=== PATIENT | male | born 1975 | race Caucasian/White ===

== ENCOUNTER 2016-09-17 19:59 | Observation (INO) | payer MEDICAID ==
[~2016-09-17] VITALS: Ht 177.8 cm; Wt 125.3 kg
[~2016-09-17 19:59] MED LIST: ACIDOPHILUS LA1 EACH PO; AMLODIPINE BES10 MG PO; ATORVASTATIN CA20 M1 PO; CLINDAMYCIN HC300 MG PO; ETODOLAC400 MG PO; FLEXERIL10 MG PO; GLIPIZIDE XL5 M1 PO; LEVOTHYROXINE0.05 M2 PO; LISINOPRIL 20MG20 MG PO; LOPRESSOR 25MG.25 MG PO; METFORMIN1000 MG PO
[2016-09-17 20:07] VITALS: BP 194/117
--- NOTE | 2016-09-17 20:33 | Emergency Room Report ---
History of Present Illness Time Seen by 2030 Presenting Problem in Triage Pt arrived:Walked Presenting Problem:C/O BLOOD SUGAR DROPPED AT 1300. STARTED HAVING CHEST PAIN AND SHORTNESS OF BREATH. STATES GLUC 41. 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 N Clinical Suspician of Infection? N Mental Status: 1 - Regular (Normal Baseline) Sepsis Risk:Low Sepsis Risk Have you (or family members/close friends) recently traveled outside the [place]? N If Yes, where/when: Have you had exposure to infectious disease within the past month? N TB? Other? Specify: Source patient, RN notes reviewed, family, old records Exam Limitations no limitations Comment wm who has acute episode of chest tightness like vice like pain with hx of abn gxt in pst but no cath - he uses tob and has niddm and pos fh Cardiac Chest Pain Chest pain indicative of cardiac Yes Timing/Duration 1-3 hours, gone now Severity/Quality moderate, tightness Location central Chest Pain Radiation arm(s) Activities at Onset light activity Nitro Today/Relief no nitro taken today Aspirin Treatment Today 81 mg x 4, provided by ED Beta michelle treatment today Beta michelle taken, provided by ED, mild relief Cardiac risk factors + cardiovascular disease, Diabetes, + family history, HTN controlled, obesity Prior Workup/Intervention stress test Timing/Duration this afternoon Severity moderate ALLERGIES Coded Allergies: Penicillins (06/28/15) Home Medications Reported Medications Levothyroxine Sodium 0.05 MG PO DAILY #30 Amlodipine Besylate (Amlodipine Besylate) 10 MG PO DAILY #30 Metoprolol Tartrate (Lopressor) 100 MG PO BID #60 TAB Atorvastatin Calcium 20 MG PO DAILY #30 LISINOPRIL (Lisinopril) 20 MG PO DAILY Glipizide XL 5 MG PO DAILY #30 History Medical History General CAD? No Angina: No CT: No Hypertension? Yes Hyperlipidemia? No CHF? No DVT? No PE? No COPD? No Asthma? No Anemia? No GERD? No Gastric ulcers? No GI Bleed? No Hernia? No Thyroid Problems? Yes Hypothyroidism? Yes CVA? No Seizures? No Diabetes? Yes Insulin Dependent: No Insulin Pump: No Home FSBS? Yes Renal Insuffiency? No End Stage Renal Disease? No UTI? No Stones? No BPH? No GB Disease: No Nephritic Syndrome? No Asplenia? No Hepatitis? No Sickle Cell Disease? No Arthritis? No Migraines? No Cataracts? No Glaucoma? No MRSA? No HIV? No TB? No Anxiety? No Depression? No Cancer? No Immunization Hx DT/Tetanus Unknown Surgical Hx Previous Surgery?Y RT HIP PINS TEETH EXTRACTION Social History Smoking Hx Smoker: Current Every Day Smoker Tobacco: Yes Type Cigarettes Packs/day < 1 Pack Alcohol Alcohol: No Drugs none Review of Systems All Other Systems Reviewed and Negative Constitutional denies fever Eyes denies drainage ENT denies: ear pain, epistaxis, throat pain. Respiratory denies cough, denies shortness of breath, denies wheezing Cardiovascular see HPI, chest pain, denies palpitations, denies syncope Gastrointestinal see HPI, denies abdominal pain, nausea, denies vomiting Genitourinary denies: dysuria, frequency, hesitancy, hematuria. Musculoskeletal denies back pain, denies joint pain, denies joint swelling, denies neck pain Skin denies rash Psychiatric/Neurological denies headache, denies seizure Physical Exam Vital Signs Vital Signs Date Time Temp Pulse Resp B/P Pulse O2 O2 Flow FiO2 Ox Delivery Rate 09/179 86 20 153/95 95 09/17 2006 98.7 88 18 194/117 98 - WBC >12,000 or <4,000 or 10% bands? 2 or more SIRS Criteria Met? B/P:153/95 MAP:142 Creatinine >2.0? UA output<0.5ml/kg/hr for 2 hrs? Platelet count >100,000? Lactate >2.0mmol/1? INR >1.2 or PTT > than 60 sec? Evidence of Organ Dysfunction? Provider documented clinical suspician of infection? N Sepsis Criteria Count: 0 Sepsis Risk: Low Sepsis Risk General Appearance no apparent distress Eye Exam - bilateral eye PERRL, bilateral eye EOMI Ear, Nose, Throat normal ENT inspection Neck supple Respiratory Status No: respiratory distress. Lung Sounds bilateral: lungs clear. 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 No Results/Orders Laboratory Tests 09/17/162043: WBC 10.9 H, RBC 5.18, Hgb 15.6, Hct 46.6, MCV 90.0, RDW 13.3, Plt Count 296, MPV 5.8 L, Gran % 65.8, Gran # 7.2, Lymphocytes % 24.8, Monocytes % 4.8, Eosinophils % 3.9, Basophils % 0.6, Lymphocytes # 2.7, Monocytes # 0.5, Eosinophils # 0.4, Basophils # 0.1, PUBS MCHC 33.5, MCH 30.2 09/17/162009: Sodium 142, Potassium 3.4 L, Chloride 107, Carbon Dioxide 26, BUN 10, Creatinine 1.1, Estimated Creat Clear 157, Estimated GFR (MDRD) 74, Glucose 168 H, Calcium 8.9, Total Bilirubin 0.2, AST 19, ALT 57, Alkaline Phosphatase 137 H , Creatine Kinase 171, CK-MB (CK-2) Rel Index 0.6, CK and CKMB Interp 1.0, Troponin I < 0.02, Total Protein 7.3, Albumin 3.7, Globulin 3.6 H, Albumin/ Globulin Ratio 1.0 L Current Medication Orders Sig/Alistair Start time Last Medication Dose Route Stop Time Status Admin Nitroglycerin 1 IN ONCE ONE 09/17 2044 DC 09/17 TP 09/17 Aspirin 324 MG ONCE ONE 09/17 2029 DC 09/17 PO 09/17 Sodium Chloride 10 ML PRN PRN 09/17 2029 AC IV 09/19 2023 Aspirin 0 .STK-MED ONE 09/17 2025 DC .ROUTE Orders Procedure Date/time Status Decision to admit 09/17 2137 Active CHEST-PORTABLE 09/17 2032 Active 12 LEAD EKG-ROHINI (INITIAL) 09/17 2024 Active ELECTROCARDIOGRAM REQUEST 09/17 2024 Active IV SALINE LOCK 09/17 2024 Active STAVE BOLT EQUALIZER 09/17 2024 Active CBC WITH AUTO DIFF 09/17 2024 Complete CARDIAC ENZYMES 09/17 2024 Complete CHEM 12 PROFILE 09/17 2024 Complete CM/EKG CM/quarrying specialist Rhythm Normal Sinus Rhythm EKG non-spec. ST/Twave chgs XRAY/CT/US XRAY/CT/US XRAY chest XR interpretation by reviewed by me Xray Results normal/NAD Departure Departure Time of Disposition 2130 Disposition Still a Patient Clinical Impression Primary Impression: Chest pain Qualifiers: Chest pain type: precordial pain Qualified Code: R07.2 - Precordial pain Secondary Impressions: HTN (hypertension) Qualifiers: Hypertension type: essential hypertension Qualified Code: I10 - Essential (primary) hypertension NIDDY (non-insulin dependent diabetes mellitus in young) Tobacco use Condition STABLE Referrals HODA CORDERO (Family) discussed with dr matos and dr adair ED Critical Care Critical Care No at 2138
--- NOTE | 2016-09-17 20:33 | Emergency Room Report ---
History of Present Illness Time Seen by 2030 Presenting Problem in Triage Pt arrived:Walked Presenting Problem:C/O BLOOD SUGAR DROPPED AT 1300. STARTED HAVING CHEST PAIN AND SHORTNESS OF BREATH. STATES GLUC 41. 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 N Clinical Suspician of Infection? N Mental Status: 1 - Regular (Normal Baseline) Sepsis Risk:Low Sepsis Risk Have you (or family members/close friends) recently traveled outside the [place]? N If Yes, where/when: Have you had exposure to infectious disease within the past month? N TB? Other? Specify: Source patient, RN notes reviewed, family, old records Exam Limitations no limitations Comment wm who has acute episode of chest tightness like vice like pain with hx of abn gxt in pst but no cath - he uses tob and has niddm and pos fh Cardiac Chest Pain Chest pain indicative of cardiac Yes Timing/Duration 1-3 hours, gone now Severity/Quality moderate, tightness Location central Chest Pain Radiation arm(s) Activities at Onset light activity Nitro Today/Relief no nitro taken today Aspirin Treatment Today 81 mg x 4, provided by ED Beta michelle treatment today Beta michelle taken, provided by ED, mild relief Cardiac risk factors + cardiovascular disease, Diabetes, + family history, HTN controlled, obesity Prior Workup/Intervention stress test Timing/Duration this afternoon Severity moderate ALLERGIES Coded Allergies: Penicillins (06/28/15) Home Medications Reported Medications Levothyroxine Sodium 0.05 MG PO DAILY #30 Amlodipine Besylate (Amlodipine Besylate) 10 MG PO DAILY #30 Metoprolol Tartrate (Lopressor) 100 MG PO BID #60 TAB Atorvastatin Calcium 20 MG PO DAILY #30 LISINOPRIL (Lisinopril) 20 MG PO DAILY Glipizide XL 5 MG PO DAILY #30 History Medical History General CAD? No Angina: No [place]: No Hypertension? Yes Hyperlipidemia? No CHF? No DVT? No PE? No COPD? No Asthma? No Anemia? No GERD? No Gastric ulcers? No GI Bleed? No Hernia? No Thyroid Problems? Yes Hypothyroidism? Yes CVA? No Seizures? No Diabetes? Yes Insulin Dependent: No Insulin Pump: No Home FSBS? Yes Renal Insuffiency? No End Stage Renal Disease? No UTI? No Stones? No BPH? No GB Disease: No Nephritic Syndrome? No Asplenia? No Hepatitis? No Sickle Cell Disease? No Arthritis? No Migraines? No Cataracts? No Glaucoma? No MRSA? No HIV? No TB? No Anxiety? No Depression? No Cancer? No Immunization Hx DT/Tetanus Unknown Surgical Hx Previous Surgery?Y RT HIP PINS TEETH EXTRACTION Social History Smoking Hx Smoker: Current Every Day Smoker Tobacco: Yes Type Cigarettes Packs/day < 1 Pack Alcohol Alcohol: No Drugs none Review of Systems All Other Systems Reviewed and Negative Constitutional denies fever Eyes denies drainage ENT denies: ear pain, epistaxis, throat pain. Respiratory denies cough, denies shortness of breath, denies wheezing Cardiovascular see HPI, chest pain, denies palpitations, denies syncope Gastrointestinal see HPI, denies abdominal pain, nausea, denies vomiting Genitourinary denies: dysuria, frequency, hesitancy, hematuria. Musculoskeletal denies back pain, denies joint pain, denies joint swelling, denies neck pain Skin denies rash Psychiatric/Neurological denies headache, denies seizure Physical Exam Vital Signs Vital Signs Date Time Temp Pulse Resp B/P Pulse O2 O2 Flow FiO2 Ox Delivery Rate 09/179 86 20 153/95 95 09/17 2006 98.7 88 18 194/117 98 - WBC >12,000 or <4,000 or 10% bands? 2 or more SIRS Criteria Met? B/P:153/95 MAP:142 Creatinine >2.0? UA output<0.5ml/kg/hr for 2 hrs? Platelet count >100,000? Lactate >2.0mmol/1? INR >1.2 or PTT > than 60 sec? Evidence of Organ Dysfunction? Provider documented clinical suspician of infection? N Sepsis Criteria Count: 0 Sepsis Risk: Low Sepsis Risk General Appearance no apparent distress Eye Exam - bilateral eye PERRL, bilateral eye EOMI Ear, Nose, Throat normal ENT inspection Neck supple Respiratory Status No: respiratory distress. Lung Sounds bilateral: lungs clear. Cardiovascular regular rate/rhythm, no gallop, no JVD, no murmur, no rub Peripheral Pulses Pulses normal Yes Gastrointestinal soft Extremities normal inspection Strength 4 Upper Ext (L), 4 Upper Ext (R), 4 Lower Ext (L), 4 Lower Ext (R) Neurologic alert, research and insights executive II-XII nml as tested, no motor/sensory deficits Reflexes Reflexes normal Yes Mental status normal mood/affect Skin intact Medical Decision Making LABS/Meds/Orders Pt receiving controlled substance in ED? No Results/Orders Laboratory Tests 09/17/162043: WBC 10.9 H, RBC 5.18, Hgb 15.6, Hct 46.6, MCV 90.0, RDW 13.3, Plt Count 296, MPV 5.8 L, Gran % 65.8, Gran # 7.2, Lymphocytes % 24.8, Monocytes % 4.8, Eosinophils % 3.9, Basophils % 0.6, Lymphocytes # 2.7, Monocytes # 0.5, Eosinophils # 0.4, Basophils # 0.1, PUBS MCHC 33.5, MCH 30.2 09/17/162009: Sodium 142, Potassium 3.4 L, Chloride 107, Carbon Dioxide 26, BUN 10, Creatinine 1.1, Estimated Creat Clear 157, Estimated GFR (MDRD) 74, Glucose 168 H, Calcium 8.9, Total Bilirubin 0.2, AST 19, ALT 57, Alkaline Phosphatase 137 H , Creatine Kinase 171, CK-MB (CK-2) Rel Index 0.6, CK and CKMB Interp 1.0, Troponin I < 0.02, Total Protein 7.3, Albumin 3.7, Globulin 3.6 H, Albumin/ Globulin Ratio 1.0 L Current Medication Orders Sig/Alistair Start time Last Medication Dose Route Stop Time Status Admin Nitroglycerin 1 IN ONCE ONE 09/17 2044 DC 09/17 TP 09/17 Aspirin 324 MG ONCE ONE 09/17 2029 DC 09/17 PO 09/17 Sodium Chloride 10 ML PRN PRN 09/17 2029 AC IV 09/19 2023 Aspirin 0 .STK-MED ONE 09/17 2025 DC .ROUTE Orders Procedure Date/time Status Decision to admit 09/17 2137 Active CHEST-PORTABLE 09/17 2032 Active 12 LEAD EKG-ROHINI (INITIAL) 09/17 2024 Active ELECTROCARDIOGRAM REQUEST 09/17 2024 Active IV SALINE LOCK 09/17 2024 Active PRICING COORDINATOR 09/17 2024 Active CBC WITH AUTO DIFF 09/17 2024 Complete CARDIAC ENZYMES 09/17 2024 Complete CHEM 12 PROFILE 09/17 2024 Complete CM/EKG CM/ion exchange operator Rhythm Normal Sinus Rhythm EKG non-spec. ST/Twave chgs XRAY/CT/US XRAY/CT/US XRAY chest XR interpretation by reviewed by me Xray Results normal/NAD Departure Departure Time of Disposition 2130 Disposition Still a Patient Clinical Impression Primary Impression: Chest pain Qualifiers: Chest pain type: precordial pain Qualified Code: R07.2 - Precordial pain Secondary Impressions: HTN (hypertension) Qualifiers: Hypertension type: essential hypertension Qualified Code: I10 - Essential (primary) hypertension NIDDY (non-insulin dependent diabetes mellitus in young) Tobacco use Condition STABLE Referrals HODA CORDERO (Family) discussed with dr matos and dr adair ED Critical Care Critical Care No at 2138
--- OUTSIDE RECORDS SUMMARY | 2016-09-17 20:49 | External Medical Summary Rpt ---
Author Author , Organization [employer] Address Unknown Phone Unavailable Purpose Continuity of Care Document - through 2016
--- OUTSIDE RECORDS SUMMARY | 2016-09-17 20:50 | External Medical Summary Rpt ---
Author Author [employer] Organization [employer] Address Unknown Phone Unavailable Purpose Continuity of Care Document - through 2016
--- OUTSIDE RECORDS SUMMARY | 2016-09-17 20:50 | External Medical Summary Rpt ---
Author Author JENIFER Moreno, JENIFER Moreno Organization [employer] Address Unknown Phone Unavailable
[2016-09-17 20:52] LABS: HEMOGLOBIN 15.6 g/dL (14.1-18.0); LYMPH # 2.7 K/mm3 (0.7-4.5); LYMPH % 24.8 % (10-50)
[2016-09-17 20:55] LABS: BUN 10 mg/dL (7-18)
[2016-09-17 20:56] LABS: GFR (ESTIMATED) 74 ML/MIN (>60)
--- OUTSIDE RECORDS SUMMARY | 2016-09-17 21:51 | External Medical Summary Rpt ---
Author Author JENIFER Moreno, [employer] Organization [employer] Address Unknown Phone Unavailable
[2016-09-17 22:35] VITALS: BP 137/75
[2016-09-17 22:37] VITALS: BP 137/75
[2016-09-17] MEDS ORDERED: METFORMIN500 MG PO (22:56)
--- NOTE | 2016-09-17 22:56 | RADIOLOGY REPORT PS360 ---
CHEST-PORTABLE HISTORY: chest pain ORDERING PHYSICIAN: Dharmesh Reyes MD PATIENT AGE: 41 years COMPARISON: None available FINDINGS: The cardiomediastinal silhouette and pulmonary vascularity are within normal limits. The lungs are clear without infiltrates, suspicious nodules, or pleural effusions. No acute bony abnormalities. IMPRESSION: Negative chest, no acute finding
[2016-09-18] VITALS (13 sets, daily range): BP systolic 116–162; BP diastolic 72–104
[2016-09-18 05:06] LABS: HEMOGLOBIN 14.7 g/dL (14.1-18.0); LYMPH # 2.8 K/mm3 (0.7-4.5); LYMPH % 31.2 % (10-50)
--- NOTE | 2016-09-18 07:12 | PHARMACY CLINIC NOTE ---
Patient Demographics Patient Demographics Admission date: 09/17/16 Date: 09/18/16 Time: 0712 Allergies Coded Allergies: Penicillins (06/28/15) HEIGHT- FT: 5 IN: 10.00 K.307 VTE General Information Labs: Laboratory Tests 09/18 09/17 0415 2044 Hematology Hgb (14.1 - 18.0 g/dL) 14.7 15.6 Hct (42.0 - 52.0 %) 44.6 46.6 Plt Count (142 - 424 K/mm3) 261 296 Disclaimer The following section includes nursing documentation that has been pulled in for pharmacy review. Patient's VTE score: 2 Patient's VTE Risk: VERY LOW RISK Clinical trial participant? No VTE prophylaxis [id number] VTE prophylaxis ordered? Yes Type of prophylaxis/treatment: VINH at 0712
--- NOTE | 2016-09-18 08:08 | CONSULT NOTE ---
See Addendum Standard Demographics Patient Demo Date of Consultation: 09/18/16 Referring Provider: Ginger Cole MD Reason for Consultation: unstable angina pectoris PRIMARY DIAGNOSIS: CHEST PAIN Problem list Problem list: 1. Diabetes mellitus, treated for at least 3 years. 2. Hypertension 3. Hyperlipidemia 4. Tobacco use 5. Strong family history of coronary artery disease in both mother and father ( mother in her early 60s from an myocardial infarction, father with diabetes and congestive heart failure). History of present illness: History of present illness: 41-year-old white male with history of diabetes, hypertension and hyperlipidemia presented to the emergency department yesterday for onset of severe anterior chest discomfort/tightness with associated shortness of breath and diaphoresis. Patient relates blood sugar about that time in the low 40 range which improved into the 60s after taking food and soda. Chest discomfort continued which prompted visit to the emergency department. Patient reportedly has been told he has coronary artery disease in the past although he denies cardiac catheterization. Previous stress test in the last couple years reportedly without need for further intervention. Patient has had some exertional chest tightness and shortness of breath over the last couple weeks while on his blood pressure medications, including metoprolol and amlodipine along with aspirin and atorvastatin. Patient ran out of his medications partially 3 or 4 days ago with worsening of his symptoms. Initial troponins were normal, but patient was admitted for evaluation and observation. Electrocardiogram is sinus rhythm with poor R wave progression anteriorly without acute ST segment elevation. Troponins have returned normal. Cardiology consulted for evaluation and recommendations. Past Medical History: General: Hypertension Yes CVA No Seizures No TB No COPD No Asthma No Diabetes Yes Insulin Dependent No Insulin Pump No Angina No [place] No Hyperlipidemia No Urinary No Cancer No Rheumatic H.D. No Ulcers No MRSA No GB Disease No Other HEART MUMUR Past Surgical HX: Previous Surgery?Y RT HIP PINS TEETH EXTRACTION Allergies Coded Allergies: Penicillins (06/28/15) Home medications: Reported Medications Metformin HCL (Metformin) 500 MG PO QID Levothyroxine Sodium 0.05 MG PO DAILY #30 Amlodipine Besylate (Amlodipine Besylate) 10 MG PO DAILY #30 Metoprolol Tartrate (Lopressor) 100 MG PO BID #60 TAB Atorvastatin Calcium 20 MG PO DAILY #30 LISINOPRIL (Lisinopril) 20 MG PO DAILY Glipizide XL 5 MG PO DAILY #30 Current Medications: Current Medications Amlodipine Besylate 10 MG DAILY PO Atorvastatin Calcium 20 MG DAILY PO Levothyroxine Sodium 0.05 MG DAILY PO Lisinopril 20 MG DAILY PO Metoprolol Tartrate 100 MG BID PO Fentanyl Citrate 25 MCG PRN PRN IV (UNV) Fentanyl Citrate 50 MCG PRN PRN IV (UNV) Flumazenil 0.2 MG PRN PRN IV (UNV) Heparin Sodium (Beef Lung) 5,000 UNITS PRN PRN IV (UNV) Heparin Sodium/Sodium Chloride 3,000 UNITS PRN PRN IV (UNV) Lidocaine HCl 20 ML ONCE ONE IJ (UNV) Midazolam HCl 1 MG PRN PRN IV (UNV) Midazolam HCl 1 MG PRN PRN IV (UNV) Naloxone HCl 0.4 MG [id number] PRN IV (UNV) Nitroglycerin 800 MCG PRN PRN IV (UNV) Verapamil HCl 5 MG PRN PRN IV (UNV) Diagnostic Test (Pha) 1 EACH W/MEALS&HS FS Insulin Human [rDNA origin] SEE ADMIN CRITERIA FOR LOW INTENSITY SS W/MEALS&HS SC Nitroglycerin 1 IN Q8 TP Acetaminophen 650 MG Q4HP PRN PO Hydromorphone HCl 1 MG Q4HP PRN IV Nicotine 21 MG DAILYP PRN TD Ondansetron HCl 4 MG Q6HP PRN IV Sodium Chloride 1,000 ML .Q20H IV Enoxaparin Sodium 125 MG ONCE ONE SC (DC) Enoxaparin Sodium 0 .STK-MED ONE SC (DC) Metoprolol Tartrate 50 MG ONCE ONE PO (DC) Metoprolol Tartrate 0 .STK-MED ONE .ROUTE (DC) Ticagrelor 180 MG ONCE ONE PO (DC) Ticagrelor 0 .STK-MED ONE PO (DC) Nitroglycerin 1 IN ONCE ONE TP (DC) Aspirin 324 MG ONCE ONE PO (DC) Sodium Chloride 10 ML PRN PRN IV Aspirin 0 .STK-MED ONE .ROUTE (DC) Immunization HX DT/Tetanus 5-10 Years Pneumonia Never Had TB Test in last year Yes Result Negative Family history Family HX Family Hx Insignificant No Diabetes Yes CAD Yes Hypertension Yes Hyperlipidemia Yes Cancer No TB No Social Hx: Smoking HX Tobacco Yes Type Cigarettes Packs/day < 1 PACK Alcohol Alcohol: No Hx of Drug Use Drug Use? No Patient's support system is good Review of systems: Constitutional see HPI. Respiratory SOB with excertion. Cardiovascular see HPI, chest pain Gastrointestinal/Abdominal No no symptoms reported Genitourinary No: no symptoms reported. Musculoskeletal back pain. Neurological Yes: tingling. Exam: Admission Vital Signs: 1ST Vital Signs Result Date Time Pulse Ox 98 09/17 2006 B/P 194/117 09/17 2006 Temp 98.7 09/17 2006 Pulse 88 09/17 2006 Resp 09/17 O2 Delivery ROOM AIR 09/17 2234 Last Vital Signs: Vital Signs Result Date Time Pulse Ox 95 09/18 425 B/P 128/93 09/18 425 O2 Delivery ROOM AIR 09/18 425 Temp 98.7 09/18 425 Pulse 69 09/18 425 Resp 09/18 Exam General appearance: alert, awake, no acute distress Neck: no carotid bruit, no JVD Cardiovascular: regular rate & rhythm, murmur Respiratory: clear to auscultation, good air movement ABD: soft, no tenderness Extremities: moves all, edema Neuro: alert, intact, oriented, speech clear Laboratory data: Laboratory Tests 09/18/16414: Creatine Kinase 126, CK-MB (CK-2) Rel Index 0.6, CK and CKMB Interp 0.7, Troponin I < 0.02 09/18/16414: Sodium 141, Potassium 3.3 L, Chloride 109 H, Carbon Dioxide 25, BUN 10, Creatinine 1.0, Estimated Creat Clear 172, Estimated GFR (MDRD) 82, Glucose 148 H, Calcium 8.6, WBC 8.9, RBC 4.95, Hgb 14.7, Hct 44.6, MCV 90.1, RDW 13.3, Plt Count 261, MPV 5.8 L, Gran % 57.6, Gran # 5.1, Lymphocytes % 31.2, Monocytes % 5.8, Eosinophils % 4.5, Basophils % 0.8, Lymphocytes # 2.8, Monocytes # 0.5, Eosinophils # 0.4, Basophils # 0.1, PUBS MCHC 32.9, MCH 29.6 09/18/16 0105: Creatine Kinase 137, CK-MB (CK-2) Rel Index 0.5, CK and CKMB Interp 0.7, Troponin I < 0.02 09/17/162043: Triglycerides 297 H, Cholesterol 144, LDL Cholesterol 65.6, VLDL Cholesterol 59.4 H, HDL Cholesterol 19.0 L, TSH 4.69 H, Thyroxine (T4) 7.1, WBC 10.9 H, RBC 5.18, Hgb 15.6, Hct 46.6, MCV 90.0, RDW 13.3, Plt Count 296, MPV 5.8 L, Gran % 65.8, Gran # 7.2, Lymphocytes % 24.8, Monocytes % 4.8, Eosinophils % 3.9, Basophils % 0.6, Lymphocytes # 2.7, Monocytes # 0.5, Eosinophils # 0.4, Basophils # 0.1, PUBS MCHC 33.5, MCH 30.2 09/17/162009: Sodium 142, Potassium 3.4 L, Chloride 107, Carbon Dioxide 26, BUN 10, Creatinine 1.1, Estimated Creat Clear 157, Estimated GFR (MDRD) 74, Glucose 168 H, Calcium 8.9, Total Bilirubin 0.2, AST 19, ALT 57, Alkaline Phosphatase 137 H , Creatine Kinase 171, CK-MB (CK-2) Rel Index 0.6, CK and CKMB Interp 1.0, Troponin I < 0.02, Total Protein 7.3, Albumin 3.7, Globulin 3.6 H, Albumin/ Globulin Ratio 1.0 L Plan: Assessment: 1. Unstable angina pectoris in a known diabetic with multiple cardiac risk factors. 2. Hypokalemia, replacement in progress. 3. Hypertension on admission due to medication noncompliance, currently controlled. 4. Hyperlipidemia, on statin therapy, LDL 65, HDL 19. 5. Tobacco use of at least one pack per day. 6. Strong family history of coronary disease Recommendations: 1. Proceed with LEFT heart catheterization today. 2. Obtain echocardiogram. 3. Further recommendations to follow. 4. Home medications including amlodipine, metoprolol lisinopril and aspirin have been restarted. at 0809
[2016-09-18] MEDS ORDERED: VICTOZA6 MG/ML SC (08:45)
[2016-09-18] MEDS ORDERED: ASPIRIN 325MG325 MG PO (08:46)
--- NOTE | 2016-09-18 08:56 | HISTORY AND PHYSICAL REPORT ---
See Addendum History and Physical (FCA) Date of admission: 09/17/16 Chief complaint: chest pain History: History of Present Illness: Mr Omer is a 41-year-old white male with history of diabetes, hypertension and hyperlipidemia who presented to the emergency department yesterday for onset of severe anterior chest discomfort/tightness with associated shortness of breath and diaphoresis. Patient relates blood sugar about that time in the low 40 range which improved into the 60s after taking food and soda. Chest discomfort continued which prompted visit to the emergency department. Patient reportedly has been told he has coronary artery disease in the past although he denies cardiac catheterization. Previous stress test in the last couple years reportedly without need for further intervention. Patient has had some exertional chest tightness and shortness of breath over the last couple weeks while on his blood pressure medications, including metoprolol and amlodipine along with aspirin and atorvastatin. Patient ran out of his medications partially 3 or 4 days ago with worsening of his symptoms. Initial troponins were normal, but patient was admitted for evaluation and observation. Electrocardiogram is sinus rhythm with poor R wave progression anteriorly without acute ST segment elevation. Troponins have returned normal. Cardiology consulted for evaluation and recommendations. This AM he continues to have some chest discomfort although it is much improved. He slept at some intervals. Past Medical History: Medical History: CAD? Yes Angina: No ID: No Hypertension? Yes Hyperlipidemia? Yes CHF? No DVT? No PE? No COPD? No Asthma? No Anemia? No GERD? No Gastric ulcers? No GI Bleed? No Hernia? No Thyroid Problems? Yes Hypothyroidism? Yes CVA? No Seizures? No Diabetes? Yes Insulin Dependent: No Insulin Pump: No Home FSBS? Yes Renal Insuffiency? No UTI? No Stones? No BPH? No GB Disease: No Nephritic Syndrome? No Asplenia? No Hepatitis? No Sickle Cell Disease? No Arthritis? No Migraines? No Cataracts? No Glaucoma? No MRSA? No HIV? No TB? No Anxiety? No Depression? No Cancer? No Additional hx: tobacco use disorder low back disease Surgical history: Previous Surgery?Y RT HIP PINS TEETH EXTRACTION Medications: Reported Medications Amlodipine Besylate (Amlodipine Besylate) 10 MG PO DAILY #30 TAB Metoprolol Tartrate (Lopressor) 100 MG PO BID #60 TAB LISINOPRIL (Lisinopril) 20 MG PO DAILY Metformin HCL (Metformin) 500 MG PO QID Liraglutide (Victoza 2-Mina) 1.2 MG SC DAILY ASPIRIN (Aspirin 325MG) 325 MG PO DAILY Levothyroxine Sodium 0.05 MG PO DAILY #30 Atorvastatin Calcium 20 MG PO DAILY #30 Glipizide XL 5 MG PO DAILY #30 Allergies: Coded Allergies: Penicillins (06/28/15) Family History: Family history: Postive for: CAD, DM, HTN, cancer, stroke. Social History: Smoking Hx Tobacco: Yes Smoker: Current Every Day Smoker Type: Cigarettes Packs/day: < 1 Pack Are you exposed to second hand Yes Alcohol: Alcohol: No Hx of Drug Use: Drug Use? No Review of Systems: Constitutional No: weak, recent weight loss. ENT No: ear ache, sore throat. Cardiovascular Positive for: chest pain, palpitations. No: edema. Respiratory Positive for: shortness of air. No: non-productive, productive cough (sputum). GI No: GERD, abdominal pain, constipation, diarrhea, hematemeis, hematochezia, nausea, vomitting. (female) No: hematuria. Neurological No: headache, seizure, syncope. Musculoskeletal No: extremity pain, joint pain. Physical Exam: Vital signs: 1ST Vital Signs Result Date Time Pulse Ox 98 09/17 2006 B/P 194/117 09/17 2006 Temp 98.7 09/17 2006 Pulse 88 09/17 2006 Resp 18 09/17 2006 O2 Delivery ROOM AIR 09/17 2235 Exam: General appearance: alert, active, no acute distress, well-developed, well- nourished, sitting on bedside Eyes: anicteric ENT: mucous membranes moist, pharynx normal, wears dentures Neck: non-tender, no carotid bruit, lymphadenopathy (absent), thyroid (normal ) Cardiovascular: regular rate & rhythm Respiratory: clear to auscultation (bilat anterior and posterior) ABD: non-distended, soft, no tenderness, no guarding, bowel sounds present Extremities: no peripheral edema Lab data: Labs: Laboratory Tests 09/18/16414: Creatine Kinase 126, CK-MB (CK-2) Rel Index 0.6, CK and CKMB Interp 0.7, Troponin I < 0.02 05/17/17 0415: Sodium 141, Potassium 3.3 L, Chloride 109 H, Carbon Dioxide 25, BUN 10, Creatinine 1.0, Estimated Creat Clear 172, Estimated GFR (MDRD) 82, Glucose 148 H, Calcium 8.6, WBC 8.9, RBC 4.95, Hgb 14.7, Hct 44.6, MCV 90.1, RDW 13.3, Plt Count 261, MPV 5.8 L, Gran % 57.6, Gran # 5.1, Lymphocytes % 31.2, Monocytes % 5.8, Eosinophils % 4.5, Basophils % 0.8, Lymphocytes # 2.8, Monocytes # 0.5, Eosinophils # 0.4, Basophils # 0.1, [email or web address]S MCHC 32.9, MCH 29.6 09/18/16 0105: Creatine Kinase 137, CK-MB (CK-2) Rel Index 0.5, CK and CKMB Interp 0.7, Troponin I < 0.02 09/17/162043: Triglycerides 297 H, Cholesterol 144, LDL Cholesterol 65.6, VLDL Cholesterol 59.4 H, HDL Cholesterol 19.0 L, TSH 4.69 H, Thyroxine (T4) 7.1, WBC 10.9 H, RBC 5.18, Hgb 15.6, Hct 46.6, MCV 90.0, RDW 13.3, Plt Count 296, MPV 5.8 L, Gran % 65.8, Gran # 7.2, Lymphocytes % 24.8, Monocytes % 4.8, Eosinophils % 3.9, Basophils % 0.6, Lymphocytes # 2.7, Monocytes # 0.5, Eosinophils # 0.4, Basophils # 0.1, [facility] [[email or web address]S MCHC 33.5, MCH 30.2 09/17/162009: Sodium 142, Potassium 3.4 L, Chloride 107, Carbon Dioxide 26, BUN 10, Creatinine 1.1, Estimated Creat Clear 157, Estimated GFR (MDRD) 74, Glucose 168 H, Calcium 8.9, Total Bilirubin 0.2, AST 19, ALT 57, Alkaline Phosphatase 137 H , Creatine Kinase 171, CK-MB (CK-2) Rel Index 0.6, CK and CKMB Interp 1.0, Troponin I < 0.02, Total Protein 7.3, Albumin 3.7, Globulin 3.6 H, Albumin/ Globulin Ratio 1.0 L Radiology results: Results: 09/17/16 CXR IMPRESSION: Negative chest, no acute finding Diagnosis(es): 1. Tobacco use 2. HTN (hypertension) 3. NIDDY (non-insulin dependent diabetes mellitus in young) 4. Chest pain 5. Hypokalemia 6. Hypothyroidism Plan: for cardiac cath this AM; will increas levothyroxin and add K+; is on sliding scale insulin; discussed smoking cessation with patient at [phone] at [phone]
--- NOTE | 2016-09-18 15:05 | RADIOLOGY REPORT PS360 ---
CARDIAC CATHETERIZATION DATE OF CATHETERIZATION:09/18/2016 12:17 PM PROCEDURES: 1. Left heart catheterization 2. Selective coronary angiogram 3. Left ventriculogram INDICATION FOR TEST: 1. Unstable angina COMPLICATIONS: None ESTIMATED BLOOD LOSS: Less than 10 ml. TECHNIQUE: One percent lidocaine used to anesthetize the right anterior aspect of the wrist. The right radial artery was accessed via the Seldinger technique. A 5 Amharic sheath was placed in the right radial artery. 2.5 mg of verapamil and 800 mcg of nitroglycerin were given through the arterial sheath. The Theresa catheter was also used to perform left heart catheterization and left ventriculography. At the end of the procedure the patient was transferred to the post-op holding area in stable condition for arterial sheath removal. ANGIOGRAPHIC RESULTS: 1. The left main artery normal 2. The left anterior descending artery proximally has mild luminal irregularities. Immediately distal to the large first septal communication signals intelligence yet proximal to the large second diagonal artery there is an eccentric 30-40% smooth 12 mm in length stenotic plaque are the remaining vessel is normal 3. The circumflex artery is a codominant vessel and has mild luminal irregularities proximally. The third obtuse marginal artery is a 2.75 mm vessel and has an eccentric 40% proximal stenosis 4. The right coronary artery is a codominant system and has mild luminal irregularities 5. The ROJO ventriculogram reveals preserved estimated at 60% 6. The left ventricular end-diastolic pressure severely elevated at 40 mmHg IMPRESSION: Normal coronary arteries. Preserved ejection fraction Severely elevated LVEDP consistent with diastolic dysfunction Presumed severe pulmonary hypertension stemming from left-sided diastolic heart failure PLAN: 1. Patient will benefit from significant diuresis. He needs both furosemide and spironolactone. 2. Weight-loss strongly advised 3. Patient's symptoms are almost certainly coming from decompensated diastolic dysfunction 4. I would recommend sleep study 5. LDL less than 70 6. Daily aspirin 7. Aggressive control of risk factors for coronary disease
--- NOTE | 2016-09-18 19:06 | ACUTE CARE PROGRESS NOTE (QUA) ---
Progress Notes Subjective Date 09/18/16 Time 1904 Note See cath report. Noncritical CAD. LVH strain. [facility] cardiology recommendations....but patient left before being seen this evening. Assessment/Plan Problem List 1. Tobacco use 2. HTN (hypertension) 3. NIDDY (non-insulin dependent diabetes mellitus in young) 4. Chest pain 5. Hypokalemia 6. Hypothyroidism This inpt stay is expected to cross 2 MNs from start of care No at 1906
--- NOTE | 2016-09-19 09:43 | RADIOLOGY REPORT PS360 ---
PROCEDURE: 2-D M-mode and color Doppler study INDICATIONS FOR THE TEST: Chest pain+ COPD Heart Murmur+ Tobacco Smoking+ Palpitations Fatigue Syncope Edema Hypertension+Diabetes Mellitus+ Rheumatic Fever SOB FERRO Obesity+Hyperlipidemia+ Family History HD Additional History Angina, heart cath today PATIENT INFORMATION HEIGHT: 70 WEIGHT: 276 GENDER: Male B/P: 128/93 2-D/M-MODE INTERPRETATION: 2-D MEASUREMENTS OBSERVED VALUES IN CMS Right Ventricular Dimension (RVDd) 1.9 Interventricular Septum (Thickness)(IVsd) 1.1 Left Ventricular Internal Dimensions(LVIDd) 4.2 Left Ventricular Posterior Wall (Thickness)(LVPWd) 1.2 Aortic Root 2.2 Aortic Cusp Separation 2.1 Left Atrial Dimensions (LAD) 4.1 2D 1. Left atrium is mildly enlarged, left ventricle is normal size, there is mild concentric left ventricular hypertrophy, visually estimated ejection fraction approximately 45-50%, there appears to be mild hypokinesis involving the anterolateral wall, endocardial surfaces are poorly visualized. 2. The right atrium and right ventricle are relatively normal size and function. 3. The aortic valve is minimally thickened and calcified, there is no aortic stenosis. 4. The mitral valve leaflets are minimally thickened, there is no mitral stenosis. 5. The tricuspid valve is structurally normal. 6. The pulmonic valve is not well visualized. 7. No significant pericardial effusion noted. DOPPLER INTERROGATION: Doppler interrogation of the aortic mitral and tricuspid valvular presence of mild mitral and tricuspid regurgitation, tricuspid and enteric velocity insufficient for calculation of the right ventricular systolic pressure , tissue Doppler is inconclusive. CONCLUSION: 1. Mildly enlarged left atrium, normal left ventricular size, mild concentric left ventricular hypertrophy, visually estimated ejection fraction 45-50% with segmental wall motion abnormality described above, endocardial surfaces are poorly visualized. 2. Mild mitral and tricuspid regurgitation. 3. No significant pericardial effusion noted.
--- NOTE | 2016-09-24 08:11 | DISCHARGE SUMMARY STANDARD ---
Discharge Summary (FCA2) Date of admission: 09/17/16 Date of discharge: 09/18/16 Problem List: 1. Diastolic heart failure 2. Chest pain 3. Tobacco use 4. HTN (hypertension) 5. NIDDY (non-insulin dependent diabetes mellitus in young) 6. Hypokalemia 7. Hypothyroidism History of present illness: Mr Omer is a 41-year-old white male with history of diabetes, hypertension and hyperlipidemia who presented to the emergency department for onset of severe anterior chest discomfort/tightness with associated shortness of breath and diaphoresis. Patient related blood sugar about that time in the low 40 range which improved into the 60s after taking food and soda. Chest discomfort continued which prompted visit to the emergency department. Patient reportedly had been told he had coronary artery disease in the past although he denied cardiac catheterization. Previous stress test in the last couple years reportedly without need for further intervention. Patient had had some exertional chest tightness and shortness of breath over the last couple weeks while on his blood pressure medications, including metoprolol and amlodipine along with aspirin and atorvastatin. Patient ran out of his medications partially 3 or 4 days prior to admission with worsening of his symptoms. Initial troponins were normal, but patient was admitted for evaluation and observation. Electrocardiogram was sinus rhythm with poor R wave progression anteriorly without acute ST segment elevation. Troponins returned normal. Cardiology consulted for evaluation and recommendations. Exam on admission: General appearance: alert, active, no acute distress, well-developed, well- nourished, sitting on bedside Eyes: anicteric ENT: mucous membranes moist, pharynx normal, wears dentures Neck: non-tender, no carotid bruit, lymphadenopathy (absent), thyroid (normal ) Cardiovascular: regular rate & rhythm Respiratory: clear to auscultation (bilat anterior and posterior) ABD: non-distended, soft, no tenderness, no guarding, bowel sounds present Extremities: no peripheral edema Hospital Course: Troponins were all normal. CXR showed nothing acute. Echo showed an EF of 45- 50%. Patient had a heart cath that showed normal coronary arteries. He had a preserved ejection fraction, severely elevated LVEDP consistent with diastolic dysfunction, and presumed severe pulmonary hypertension stemming from left-sided diastolic heart failure. Cardiology felt the patient would benefit from significant diuresis. They felt he needed both furosemide and spironolactone. The patient left the floor without being seen by Dr. Reyes after his cath. Discharge medications: Continue taking these medications: Levothyroxine Sodium (Levothyroxine Sodium) 50 MCG TABLET 0.05 MILLIGRAM ORAL DAILY Qty = 30 Amlodipine Besylate (Amlodipine Besylate) 10 MG TABLET 10 MILLIGRAM ORAL DAILY Qty = 30 Metoprolol Tartrate (Lopressor) 25 MG TABLET 100 MILLIGRAM ORAL TWICE A DAY Qty = 60 Atorvastatin Calcium (Atorvastatin Calcium) 20 MG TABLET 20 MILLIGRAM ORAL DAILY Qty = 30 LISINOPRIL (Lisinopril) 20 MG TABLET 20 MILLIGRAM ORAL DAILY Glipizide XL (Glipizide XL) 5 MG TAB.ER.24 5 MILLIGRAM ORAL DAILY Qty = 30 Metformin HCL (Metformin) 500 MG TABLET 500 MILLIGRAM ORAL FOUR TIMES A DAY Liraglutide (Victoza 2-Mina) 0.6 MG/0.1 ML PEN.INJCTR 1.2 MILLIGRAM Subcutaneous Injection DAILY ASPIRIN (Aspirin 325MG) 325 MG TABLET 325 MILLIGRAM ORAL DAILY Disposition: Left AMA at 0810
== END 2016-09-18 18:40 | disposition left against medical advice (07) ==
LOC: ER 19:59 → 2ND 21:39
PROVIDERS: Emergency Medicine; Internal Medicine
PROC: B2111ZZ Fluoroscopy of Multiple Coronary Arteries using Low Osmolar Contrast (ICD-10-PCS; 2016-09-18)
PROC: B2151ZZ Fluoroscopy of Left Heart using Low Osmolar Contrast (ICD-10-PCS; 2016-09-18)
PROC: 4A023N7 Measurement of Cardiac Sampling and Pressure, Left Heart, Percutaneous Approach (ICD-10-PCS; principal; 2016-09-18 09:45)
DX: R07.9 Chest pain, unspecified (principal); I27.2 Other secondary pulmonary hypertension; I10 Essential (primary) hypertension; Z72.0 Tobacco use; E11.9 Type 2 diabetes mellitus without complications
CPT/HCPCS: C1760; C1769; G0378; J1644; Q9966

== ENCOUNTER → 2017-02-10 | Outpatient (CLI) | payer MEDICAID ==
[~2017-02-10] MED LIST changes: +ASPIRIN 325MG325 MG PO; +METFORMIN500 MG PO; +VICTOZA6 MG/ML SC
== END ==
LOC: SL 20:28
DX: G47.33 Obstructive sleep apnea (adult) (pediatric) (principal)

== ENCOUNTER 2017-04-07 09:08 | Emergency (ER) | payer MEDICAID ==
[~2017-04-07] VITALS: Ht 177.8 cm; Wt 136.1 kg
--- OUTSIDE RECORDS SUMMARY | 2017-04-07 09:12 | External Medical Summary Rpt | CCD ---
Author Author , MISHA BURGESS Address Unknown Phone [email or web address] Purpose Continuity of Care Document - 09-17-2016 through 2016 Problems Code Diagnosis DOS Provider Status I10 ESSENTIAL 11-27-2016 (PRIMARY) HYPERTENSIO N I50.9 HEART 11-27-2016 FAILURE, UNSPECIFIED E13.9 OTHER SPECIFIED DIABETES MELLITUS WITHOUT COMPLICATIO NS L03.116 CELLULITIS OF LEFT LOWER LIMB R07.9 CHEST PAIN, UNSPECIFIED S39.012A STRAIN OF MUSCLE, FASCIA AND TENDON OF LOWER BACK, INIT Z72.0 TOBACCO USE
--- OUTSIDE RECORDS SUMMARY | 2017-04-07 09:12 | External Medical Summary Rpt | CCD ---
Author Author , MISHA BURGESS Address Unknown Phone [email or web address] Purpose Continuity of Care Document - 09-17-2016 [...]
--- OUTSIDE RECORDS SUMMARY | 2017-04-07 09:13 | External Medical Summary Rpt | CCD ---
Demographics Preferred Language Thai Marital Status Unknown Rastafari Affiliation Unknown Race Unknown Ethnic Group Unknown Author Author , MISHA BURGESS Address Unknown Phone Immunization No patient found.
--- OUTSIDE RECORDS SUMMARY | 2017-04-07 09:13 | External Medical Summary Rpt | CCD ---
Demographics Preferred Language Kiswahili Marital Status Unknown Christian Affiliation Unknown Race Unknown Ethnic Group Unknown Author Author , MISHA BURGESS Address Unknown Phone Immunization No patient found.
--- OUTSIDE RECORDS SUMMARY | 2017-04-07 09:13 | External Medical Summary Rpt ---
Author Author JENIFER Moreno, [employer] Address Unknown Phone Unavailable Results Glucose [Mass/volume] in Capillary blood by Glucometer Observa Value Referen Units Interpr Notes Date tion ce etation Range Glucose 70 - 110 mg/dl Normal No September 18 [Mass/vol informati 2016 5:09 ume] in on in PM Capillary source blood by data Glucomete r Glucose [Mass/volume] in Capillary blood by Glucometer Observa Value Referen Units Interpr Notes Date tion ce etation Range Glucose 70 - 110 mg/dl Normal No September 18 [Mass/vol informati 2016 ume] in on in 12:29 PM Capillary source blood by data Glucomete r Glucose [Mass/volume] in Capillary blood by Glucometer Observa Value Referen Units Interpr Notes Date tion ce etation Range Glucose 70 - 110 mg/dl Normal No September 18 [Mass/vol informati 2016 6:02 ume] in on in AM Capillary source blood by data Glucomete r CBC W Auto Differential panel in Blood Observa Value Referen Units Interpr Notes Date tion ce etation Range Basophils 0 - 0.2 K/MM3 Normal No September 18 inform2016 4:15 [#/volume on in AM ] in source Blood by data Automated count Basophils 0.1 - 2.0 % Normal No September 18 informati 2016 4:15 leukocyte on in AM s in source Blood by data Automated count Eosinophi 0.0 - 0.4 K/mm3 Normal No September 18 ls informati 2016 4:15 [#/volume on in AM ] in source Blood by data Automated count Eosinophi 0.1 - % Normal No September 18 ls/100 12.0 informati 2016 4:15 leukocyte on in AM s in source Blood by data Automated count Granulocy 1.3 - 8.0 K/mm3 Normal No September 18 clara informati 2016 4:15 [#/volume on in AM ] in source Blood by data Automated count Granulocy 37.0 - % Normal No September 18 clara/100 80.0 informati 2016 4:15 leukocyte on in AM s in source Blood by data Automated count Hematocri 42.0 - % Normal No September 18 t [Volume 52.0 informati 2016 4:15 on in AM Fraction] source of Blood data Hemoglobi 14.1 - g/dL Normal No September 18 n 18.0 informati 2016 4:15 [Mass/vol on in AM ume] in source Blood data Lymphocyt 0.7 - 4.5 K/mm3 Normal No September 18 es informati 2016 4:15 [#/volume on in AM ] in source Unspecifi data ed specimen by Automated count Lymphocyt 10 - 50 % Normal No September 18 es informati 2016 4:15 [#/volume on in AM ] in source Unspecifi data ed specimen by Automated count Erythrocy 27 - 31.2 pg Normal No September 18 te mean informati 2016 4:15 corpuscul on in AM ar source hemoglobi data n [Entitic mass] Erythrocy 31.8 - g/dl Normal No September 18 te mean 35.4 informati 2016 4:15 corpuscul on in AM ar source hemoglobi data n concentra tion [Mass/vol ume] by Automated count Erythrocy 82.2 - fl Normal No September 18 te mean 97.8 informati 2016 4:15 corpuscul on in AM ar volume source [Entitic data volume] by Automated count Monocytes 0.1 - 1.0 K/mm3 Normal No September 18 informati 2016 4:15 [#/volume on in AM ] in source Blood by data Automated count Monocytes 1.7 - 9.3 % Normal No September 18 informati 2016 4:15 leukocyte on in AM s in source Blood by data Automated count Platelet 7.4 - fl Low No September 18 mean 10.4 informati 2016 4:15 volume on in AM [Entitic source volume] data in Blood by Automated count Platelets 142 - 424 K/mm3 Normal No September 18 informati 2016 4:15 [#/volume on in AM ] in source Blood data Erythrocy 4.6 - 6.2 M/mm3 Normal No September 18 clara informati 2016 4:15 [#/volume on in AM ] in source Amniotic data fluid Erythrocy 11.5 - % Normal No September 18 te 17.5 informati 2016 4:15 distribut on in AM ion width source [Entitic data volume] by Automated count Leukocyte 4.8 - K/MM3 Normal No September 18 s 10.8 informati 2016 4:15 [#/volume on in AM ] in source Blood data Basic metabolic panel in Blood Observa Value Referen Units Interpr Notes Date tion ce etation Range Urea 7 - 18 mg/dL Normal No September 18 nitrogen informati 2016 4:15 [Mass/vol on in AM ume] in source Serum or data Plasma Calcium 8.5 - mg/dL Normal No September 18 [Mass/vol 10.1 informati 2016 4:15 ume] in on in AM Serum or source Plasma data Chloride 98 - 107 mmoL/L High No September 18 [Moles/vo informati 2016 4:15 lume] in on in AM Serum or source Plasma data Carbon 21.0 - mmoL/L Normal No September 18 dioxide, 32.0 informati 2016 4:15 total on in AM [Moles/vo source lume] in data Serum or Plasma Creatinin 0.70 - mg/dL Normal No September 18 e 1.30 informati 2016 4:15 [Mass/vol on in AM ume] in source Serum or data Plasma Creatinin 50 - 200 ML/MIN Normal No September 18 e renal informati 2016 4:15 clearance on in AM source predicted data by Cockcroft -Gault formula Estimated >60 ML/MIN No REFERENCE September 18 informati RANGE: 2017 4:15 glomerula on in >60 AM r source ML/MIN/1. filtratio data 73 SQUARE n rate METERSIf (GF this patient is -A merican, then multiply theresult by 1.210. Glucose 74 - 106 mg/dL High No September 18 [Mass/vol informati 2016 4:15 ume] in on in AM Serum or source Plasma data Potassium 3.5 - 5.1 mmoL/L Low No September 18 informati 2016 4:15 [Moles/vo on in AM lume] in source Serum or data Plasma Sodium 136 - 145 mmoL/L Normal No September 18 [Moles/vo informati 2016 4:15 lume] in on in AM Serum or source Plasma data Lipid 1996 panel in Serum or Plasma Observa Value Referen Units Interpr Notes Date tion ce etation Range Cholester < 200 mg/dL No No September 17 ol informati informati 2016 8:44 [Moles/vo on in on in PM lume] in source source Unspecifi data data ed specimen Cholester 40 - 60 MG/DL Low No September 17 ol in HDL inform2016 8:44 on in PM [Mass/vol source ume] in data Serum or Plasma Cholester 0 - 130 mg/dL Normal No September 17 ol in LDL inform2016 8:44 on in PM [Mass/vol source ume] in data Serum or Plasma by calculati on Triglycer 30 - 200 mg/dL High No September 17 seamus ati 2016 8:44 [Moles/vo on in PM lume] in source Serum or data Plasma Cholester 0 - 40 No High No September 17 ol in informati informati 2016 8:44 VLDL on in on in PM [Mass/vol source source ume] in data data Serum or Plasma Thyroxine (T4) [Mass/volume] in Serum or Plasma Observa Value Referen Units Interpr Notes Date tion ce etation Range Thyroxine 4.7 - ug/dl Normal No September 17 (T4) 13.3 2016 8:44 [Mass/vol on in PM ume] in source Serum or data Plasma Thyrotropin [Units/volume] in Serum or Plasma Observa Value Referen Units Interpr Notes Date tion ce etation Range Thyrotrop 0.358 - uIU/ml High No September 17 in 3.740 informati 2016 8:44 [Units/vo on in PM lume] in source Serum or data Plasma CBC W Auto Differential panel in Blood Observa Value Referen Units Interpr Notes Date tion ce etation Range Basophils 0 - 0.2 K/MM3 Normal No September 172016 8:44 [#/volume on in PM ] in source Blood by data Automated count Basophils 0.1 - 2.0 % Normal No September 17 informati 2016 8:44 leukocyte on in PM s in source Blood by data Automated count Eosinophi 0.0 - 0.4 K/mm3 Normal No September 17 ls ati 2016 8:44 [#/volume on in PM ] in source Blood by data Automated count Eosinophi 0.1 - % Normal No September 17 ls/100 12.0 informati 2016 8:44 leukocyte on in PM s in source Blood by data Automated count Granulocy 1.3 - 8.0 K/mm3 Normal No September 17 clara ati 2017 8:44 [#/volume on in PM ] in source Blood by data Automated count Granulocy 37.0 - % Normal No September 17 clara/100 80.0 informati 2016 8:44 leukocyte on in PM s in source Blood by data Automated count Hematocri 42.0 - % Normal No September 17 t [Volume 52.0 informati 2016 8:44 on in PM Fraction] source of Blood data Hemoglobi 14.1 - g/dL Normal No September 17 n 18.0 informati 2016 8:44 [Mass/vol on in PM ume] in source Blood data Lymphocyt 0.7 - 4.5 K/mm3 Normal No September 17 es informati 2016 8:44 [#/volume on in PM ] in source Unspecifi data ed specimen by Automated count Lymphocyt 10 - 50 % Normal No September 17 es informati 2016 8:44 [#/volume on in PM ] in source Unspecifi data ed specimen by Automated count Erythrocy 27 - 31.2 pg Normal No September 17 te mean informati 2016 8:44 corpuscul on in PM ar source hemoglobi data n [Entitic mass] Erythrocy 31.8 - g/dl Normal No September 17 te mean 35.4 informati 2016 8:44 corpuscul on in PM ar source hemoglobi data n concentra tion [Mass/vol ume] by Automated count Erythrocy 82.2 - fl Normal No September 17 te mean 97.8 informati 2016 8:44 corpuscul on in PM ar volume source [Entitic data volume] by Automated count Monocytes 0.1 - 1.0 K/mm3 Normal No September 17 informati 2016 8:44 [#/volume on in PM ] in source Blood by data Automated count Monocytes 1.7 - 9.3 % Normal No September 17 informati 2016 8:44 leukocyte on in PM s in source Blood by data Automated count Platelet 7.4 - fl Low No September 17 mean 10.4 informati 2016 8:44 volume on in PM [Entitic source volume] data in Blood by Automated count Platelets 142 - 424 K/mm3 Normal No September 17 informati 2016 8:44 [#/volume on in PM ] in source Blood data Erythrocy 4.6 - 6.2 M/mm3 Normal No September 17 clara informati 2016 8:44 [#/volume on in PM ] in source Amniotic data fluid Erythrocy 11.5 - % Normal No September 17 te 17.5 informati 2017 8:44 distribut on in PM ion width source [Entitic data volume] by Automated count Leukocyte 4.8 - K/MM3 High No September 17 s 10.8 informati 2017 8:44 [#/volume on in PM ] in source Blood data
--- NOTE | 2017-04-07 10:16 | Urgent Treatment Center Report ---
History of Present Issue Date/Time Seen by Provider 04/07/17 1010 Visit Reason Pt arrived:Walked Presenting Problem:PT STATES HE FELL AND IS NOW C/O RIGHT ELBOW AND RIGHT FOREARM PAIN Location if Accident: Onset of symptoms date/time:/ or onset unknown for:MEDICAL HX UNKNOWN Have you (or family members/close friends) recently traveled outside the [place]? N If Yes, where/when: Have you had exposure to infectious disease within the past month? TB? Other? Specify: c/o right elbow pain. 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 Did not report it and denies workman's comp claim. Thought pain would improve but hasn't. Limited elbow ROM due to pain radiating through forearm with ROM. Hasn't taken or tried anything, lateral epicondyle most painful, pain 11/11, denies any reason to not take NSAIDs Source patient Exam Limitations no limitations ALLERGIES Coded Allergies: Penicillins (06/28/15) Home Medications Reported Medications Amlodipine Besylate (Amlodipine Besylate) 10 MG PO DAILY #30 TAB Metoprolol Tartrate (Lopressor) 100 MG PO BID #60 TAB LISINOPRIL (Lisinopril) 20 MG PO DAILY Metformin HCL (Metformin) 500 MG PO QID Liraglutide (Victoza 2-Mina) 1.2 MG SC DAILY ASPIRIN (Aspirin 325MG) 325 MG PO DAILY Levothyroxine Sodium 0.05 MG PO DAILY #30 Atorvastatin Calcium 20 MG PO DAILY #30 Glipizide XL 5 MG PO DAILY #30 History Medical History General CAD? Yes Angina: No MD: No Hypertension? Yes Hyperlipidemia? Yes CHF? No DVT? No PE? No COPD? No Asthma? No Anemia? No GERD? No Gastric ulcers? No GI Bleed? No Hernia? No Thyroid Problems? Yes Hypothyroidism? Yes CVA? No Seizures? No Diabetes? Yes Insulin Dependent: No Insulin Pump: No Home FSBS? Yes Renal Insuffiency? No UTI? No Stones? No BPH? No GB Disease: No Nephritic Syndrome? No Asplenia? No Hepatitis? No Sickle Cell Disease? No Arthritis? No Migraines? No Cataracts? No Glaucoma? No MRSA? No HIV? No TB? No Anxiety? No Depression? No Cancer? No Additional hx: tobacco use disorder low back disease Immunization HX DT/Tetanus 5-10 Years Ago Pneumonia Refuses Surgical Hx Previous Surgery?Y RT HIP PINS TEETH EXTRACTION Family History Family HX Diabetes Yes CAD Yes Hypertension Yes Hyperlipidemia Yes Cancer No TB No Social History Smoking Hx Smoker: Current Every Day Smoker Tobacco: Yes Type Cigarettes Packs/day < 1 Pack Alcohol Alcohol: No Review of Systems All Other Systems Reviewed and Negative (as appropriate) Musculoskeletal see HPI Skin denies change in color, denies lesions, denies lumps Psychiatric/Neurological denies numbness, denies tingling, denies weakness Physical Exam Vital Signs Vital Signs Date Time Temp Pulse Resp B/P Pulse O2 O2 Flow FiO2 Ox Delivery Rate 04/07 1121 98.2 71 20 115/89 96 04/07 1020 20 04/07 0948 98.2 71 20 115/89 96 General Appearance normal appearance, no apparent distress Respiratory Status No: respiratory distress. Cardiovascular no peripheral edema Peripheral Pulses Pulses normal Yes (radial) Extremities normal range of motion (rt digits, wrist, shoulder), normal inspection (RUE), limited range of motion (rt elbow), TTP over lateral epicondyle, inc pain w/ pronation Strength 5 Upper Ext (L), 5 Upper Ext (R) Neurologic alert, no motor/sensory deficits, oriented x 3 Skin intact, normal color, warm/dry Medical Decision Making LABS/Meds/Orders Pt receiving controlled substance in ED? No Results/Orders Current Medication Orders Sig/Alistair Start time Last Medication Dose Route Stop Time Status Admin Ketorolac 0 .STK-MED ONE 04/07 1018 DC Tromethamine .ROUTE Ketorolac 60 MG ONCE ONE 04/07 1015 DC 04/07 Tromethamine IM 04/07 1016 1020 Orders Procedure Date/time Status STABILIZE JOINT 04/07 1121 Active XRAY/CT/US XRAY/CT/US XRAY elbow (right), forearm (right) XR interpretation by discussed w/radiologist (read report) Xray Results no acute finding Departure Departure Time of Disposition 1116 Disposition DC Home or Self Care(routine) Clinical Impression Primary Impression: Contusion of right elbow, initial encounter Condition STABLE Referrals Lai Cole MD Follow up IMMEDIATELY for new or worsening symptoms OR no noticeable improvement over the next 3-5 days as further evaluation may be necessary if not improving Patient Instructions DI for Contusion, How To Perform RICE (Rest, Ice, Compress, Elevate) Additional Instructions * use/move as tolerated. If painful, stop. * Rest * ice 15-20 mins 3-4 times a day *sling for support and swelling * Elevate as discussed as much as possible to help reduce swelling and therefore , pain * Ibuprofen every 6 hours as needed for pain and inflammation. If you need something more, you can take tylenol every 4 hours as needed as long as your primary care provider has told you it is ok to take both. You had toradol in clinic. This is similiar to ibuprofen, motrin, aleve, advil so do NOT repeat dose for 6-8 hours. Discharge Counseling Counseled pt/family regarding diagnosis, test results, medications/RX, home care, follow up needs at [id number]
--- NOTE | 2017-04-07 11:00 | RADIOLOGY REPORT PS360 ---
FOREARM-RT HISTORY: posttraumatic pain FELL ORDERING PHYSICIAN: JAMARCUS HSU APRN PATIENT AGE: 41 years COMPARISON: None FINDINGS: No obvious fracture, dislocation, lytic change or blastic change. Normal mineralization. Unremarkable soft tissues IMPRESSION: Negative forearm
--- NOTE | 2017-04-07 11:00 | RADIOLOGY REPORT PS360 ---
ELBOW-RT-3 VIEWS HISTORY: Posttraumatic pain FELL ORDERING PHYSICIAN: JAMARCUS HSU APRN PATIENT AGE: 41 years COMPARISON: None FINDINGS: BONY STRUCTURES: No fracture or dislocation. No lytic or blastic change. Normal mineralization. SOFT TISSUES: Unremarkable. No radio opaque foreign bodies. No displaced fat pad. JOINT SPACE: Well-preserved. No significant arthritic changes evident. IMPRESSION: Negative elbow.
[2017-04-07 11:21] VITALS: BP 115/89
== END 2017-04-07 11:23 | disposition home or self-care (01) ==
LOC: UTC 09:08
DX: S50.01XA Contusion of right elbow, initial encounter (principal); W01.0XXA Fall on same level from slipping, tripping and stumbling without subsequent striking against object, initial encounter; Y92.009 Unspecified place in unspecified non-institutional (private) residence as the place of occurrence of the external cause; I25.10 Atherosclerotic heart disease of native coronary artery without angina pectoris; I10 Essential (primary) hypertension; E78.5 Hyperlipidemia, unspecified; E03.9 Hypothyroidism, unspecified; E11.9 Type 2 diabetes mellitus without complications; F17.210 Nicotine dependence, cigarettes, uncomplicated

== ENCOUNTER → 2017-04-14 | Outpatient (CLI) | payer MEDICAID ==
[2017-04-14 11:14] LABS: BUN 12 mg/dL (7-18)
[2017-04-14 11:23] LABS: GFR (ESTIMATED) 74 ML/MIN (>60)
== END ==
LOC: LAB 08:54
PROVIDERS: Internal Medicine
DX: I20.8 Other forms of angina pectoris (principal); R06.00 Dyspnea, unspecified; I10 Essential (primary) hypertension; I50.30 Unspecified diastolic (congestive) heart failure; G47.33 Obstructive sleep apnea (adult) (pediatric); E66.9 Obesity, unspecified